=== PATIENT | male | born 1980 | race African-American/Black ===

== ENCOUNTER 2018-07-26 01:49 | Inpatient (IN) | payer MEDICAID ==
[2018-07-26 02:07] VITALS: O2SAT 98
[2018-07-26 02:59] LABS: BASO # 0.1 K/uL (0.0-0.2); BASO % 0.6 % (0.0-2.0); EOS # 0.1 K/uL (0.0-0.7); EOS % 1.5 % (0.0-4.0); HEMOGLOBIN 12.8 g/dL (12.0-18.0); LYMPH # 2.5 K/uL (1.0-4.3); LYMPH % 27.6 % (20.0-40.0); MEAN CELL VOLUME 100.8 fl (80.0-94.0); MEAN CORPUSCULAR HEMOGLOBIN 33.4 pg (27.0-31.0); MEAN CORPUSCULAR HGB CONC 33.2 g/dL (33.0-37.0); MONO # 0.9 K/uL (0.0-0.8); MONO % 10.3 % (0.0-10.0); NEUT # 5.5 K/uL (1.8-7.0); NRBC % 0.1 % (0.0-0.0); RBC 3.84 Mil/uL (4.40-5.90); RED CELL DISTRIBUTION WIDTH 13.3 % (11.5-14.5); WHITE BLOOD COUNT 9.2 K/uL (4.8-10.8)
[2018-07-26 03:01] LABS: URINE BILIRUBIN NEGATIVE (NEGATIVE); URINE BLOOD NEGATIVE (NEGATIVE); URINE CLARITY SLIGHTY-CLOUDY (Clear); URINE COLOR YELLOW (YELLOW); URINE GLUCOSE (UA) NEG (NEGATIVE); URINE LEUKOCYTE ESTERASE NEG Leu/uL (Negative); URINE PROTEIN NEGATIVE (NEGATIVE)
--- NOTE | 2018-07-26 03:08 | ED PDOC ---
HPI: Psych/Substance Abuse Time Seen by Provider: 07/26/18 02:09 Chief Complaint (Nursing): Psychiatric Evaluation Chief Complaint (Provider): Psychiatric Evaluation History Per: Patient History/Exam Limitations: no limitations Current Symptoms Are (Timing): Still Present Additional Complaint(s): 37 y/o male with a PMHx of ADHD, Bipolar Disorder, Depression, substance abuse and alcohol abuse presents to the ED for evaluation of suicidal ideation, onset one day ago. Patient notes of having a plan to hang himself. Patient reports of recently being seen at an emergency room in [place] and discharged home then subsequently being seen at [facility] and discharged home. Patient states he was just discharged from [facility] and walked here. PMD: no provider Past Medical History Reviewed: Historical Data, Nursing Documentation, Vital Signs Vital Signs: Last Vital Signs Temp 97.6 F 07/26/18 01:58 Pulse 98 H 07/26/18 01:58 Resp 16 07/26/18 01:58 BP 128/79 07/26/18 01:58 Pulse Ox 98 07/26/18 01:58 - Medical History PMH: Depression, Hepatitis (Pt said he might be positive for Hep "C") Denies: Diabetes, HIV, HTN, Chronic Kidney Disease, Seizures, Sexually Transmitted Disease - Surgical History Surgical History: No Surg Hx - Family History Family History: States: Unknown Family Hx - Living Arrangements Living Arrangements: Other (homeless) - Social History Current smoker - smoking cessation education provided: Yes Alcohol: > 2 Drinks/Day - Immunization History Hx Tetanus Toxoid Vaccination: Yes Hx Influenza Vaccination: Yes Hx Pneumococcal Vaccination: Yes - Home Medications Home Medications: Ambulatory Orders Medication Instructions Recorded Citalopram [celeXA] 10 mg PO DAILY #30 tab 09/05/15 Divalproex [Depakote DR] 500 mg PO BID #60 tcp 09/05/15 Gabapentin [Neurontin] 300 mg PO TID #90 cap 09/05/15 traZODone [Desyrel] 50 mg PO HS PRN #30 tab 09/05/15 - Allergies Allergies/Adverse Reactions: Allergies Allergy/AdvReac Type Severity Reaction Status Date / Time No Known Allergies Allergy Unverified 07/26/18 14:26 Review of Systems ROS Statement: Except As Marked, All Systems Reviewed And Found Negative Psych: Positive for: Suicidal ideation (with plan to hang himself) Physical Exam - Reviewed Nursing Documentation Reviewed: Yes Vital Signs Reviewed: Yes - Physical Exam Appears: Positive for: No Acute Distress Head Exam: Positive for: ATRAUMATIC, NORMOCEPHALIC Skin: Positive for: Normal Color, Warm, Dry Eye Exam: Positive for: Normal appearance, EOMI, PERRL Neck: Positive for: Normal, Painless ROM Cardiovascular/Chest: Positive for: Regular Rate, Rhythm. Negative for: Murmur Respiratory: Positive for: Normal Breath Sounds. Negative for: Respiratory Distress Extremity: Positive for: Normal ROM Neurological/Psych: Positive for: Awake, Alert, Oriented. Negative for: Motor/Sensory Deficits - Laboratory Results Result Diagrams: 07/26/18 02:50 07/26/18 02:50 Lab Results: Urine Color Yellow (YELLOW) 07/26/18 02:50 Urine Clarity Slighty-cloudy (Clear) 07/26/18 02:50 Urine pH 6.0 (5.0-8.0) 07/26/18 02:50 Ur Specific [place] 1.018 (1.003-1.030) 07/26/18 02:50 Urine Protein Negative mg/dL (NEGATIVE) 07/26/18 02:50 Urine Glucose (UA) Neg mg/dL (NEGATIVE) 07/26/18 02:50 Urine Ketones Negative mg/dL (NEGATIVE) 07/26/18 02:50 Urine Blood Negative (NEGATIVE) 07/26/18 02:50 Urine Nitrate Negative (NEGATIVE) 07/26/18 02:50 Urine Bilirubin Negative (NEGATIVE) 07/26/18 02:50 Urine Urobilinogen 2.0 mg/dL (0.2-1.0) 07/26/18 02:50 Ur Leukocyte Esterase Neg Lars/uL (Negative) 07/26/18 02:50 Urine RBC (Auto) 1 /hpf (0-3) 07/26/18 02:50 Urine Microscopic WBC 1 /hpf (0-5) 07/26/18 02:50 - ECG O2 Sat by Pulse Oximetry: 98 (RA) Pulse Ox Interpretation: Normal Medical Decision Making Medical Decision Making: Time: 213 Impression: 37 y/o male with a suicidal ideation Plan: -- Alcohol Serum -- CMP -- Urine Drug Screen -- Crisis Evaluation -- ED Urine Dipstick -- CBC with Differentials -- 1:1 Observation -- Accucheck -- Urinalysis Time: 313 -- Patient evaluated by crisis who state patient will be admitted with a diagnosis of depression as per Dr. Reed. Patient is medically stable for psychiatric admission. Scribe Attestation: Documented by Negin Moyer, acting as a scribe Agnes Smallwood MD. Provider Scribe Attestation: All medical record entries made by the Scribe were at my direction and personally dictated by me. I have reviewed the chart and agree that the record accurately reflects my personal performance of the history, physical exam, medical decision making, and the department course for this patient. I have also personally directed, reviewed, and agree with the discharge instructions and disposition. Disposition - Clinical Impression Clinical Impression: Depression - Patient ED Disposition Is Patient to be Admitted: Yes Counseled Patient/Family Regarding: Studies Performed, Diagnosis - Disposition Disposition Time: 03:14 Condition: FAIR
[2018-07-26 03:14] LABS: ALB/GLOB RATIO 1.5 (1.0-2.1); ALBUMIN 4.4 g/dL (3.5-5.0); ALT/SGPT 189 U/L (21-72); AST/SGOT 134 U/L (17-59); BLOOD UREA NITROGEN 16 mg/dl (9-20); CALCIUM 9.4 mg/dL (8.4-10.2); GFR NON-AFRICAN AMERICAN > 60
[2018-07-26 03:41] LABS: PHENCYCLIDINE, UR NEGATIVE (NEGATIVE)
[2018-07-26 03:45] LABS: BARBITURATES, UR NEGATIVE (NEGATIVE); BENZODIAZEPINES, UR POSITIVE (NEGATIVE); OPIATES, UR NEGATIVE (NEGATIVE)
[2018-07-26] MEDS ORDERED: Alum-Mag Hydrox-Simethicone Susp (30 mL) PO PRN (05:09)
[2018-07-26] MEDS ORDERED: Magnesium Hydroxide Susp 30 ml UD PO PRN (05:09)
[2018-07-26] MEDS ORDERED: DiphenhydrAMINE 50 mg/ml Inj IM PRN (05:09)
[2018-07-26 05:27] VITALS: RESP 18
--- NOTE | 2018-07-26 05:28 | PCM.BM ---
Treatment Plan Problems - Problems identified on initial assessmt Medication nonadherence Date Initiated: 07/26/18 Time Initiated: 05:27 Assessment reference: NA Status: Active Hopelessness/Helplessness Date Initiated: 07/26/18 Time Initiated: 05:28 Assessment reference: NA Status: Active Altered sleep Date Initiated: 07/26/18 Time Initiated: 05:29 Assessment reference: NA Status: Active Treatment assets and liabiliti Patient Assests: cooperative, ADL independent, physically healthy, negotiates basic needs, cognitively intact Patient Liabilities: poor support system, substance abuse, legal issue, other (homelessness) - Milieu Protocol Maintain good personal hygiene: daily Encourage regular showers, other Remind patient to perform daily oral care (prn), other Assist patient to perform ADL's (prn) Conduct patient checks and document Observation sheet: Q15 minutes Maintain personal safety: every shift Educate patient to report safety concerns to staff, every shift Monitor environment for contraband/sharps Medication safety: Monitor for expected outcome, potential side effects: every shift, Assess barriers to learning: every shift, Assess readiness for medication education: every shift
[2018-07-26 10:09] VITALS: BP 123/78; PULSE 92; TEMP 97.2
--- NOTE | 2018-07-26 10:46 | RAD ---
Date of service: 07/26/2018 HISTORY: Admission COMPARISON: No prior. TECHNIQUE: 1 view obtained. FINDINGS: LUNGS: No active pulmonary disease. PLEURA: No significant pleural effusion identified, no pneumothorax apparent. CARDIOVASCULAR: No aortic atherosclerotic calcification present. Normal cardiac size. No pulmonary vascular congestion. OSSEOUS STRUCTURES: No significant abnormalities. VISUALIZED UPPER ABDOMEN: Normal. OTHER FINDINGS: None. IMPRESSION: No active disease.
--- NOTE | 2018-07-26 11:41 | CP.PCM.CON ---
History of Present Illness - History of Present Illness History of Present Illness: 37 yo male with history of ADHD, Depression and alcohol Abuse admitted to psyche unit because of suicidal ideation. Review of Systems - Review of Systems All systems: reviewed and no additional remarkable complaints except (aside from those mentioned above, 12 point system review were negative by me) Past Patient History - Tetanus Immunizations Tetanus Immunization: Unknown - Past Social History Smoking Status: Heavy Smoker > 10 Cigarettes Daily Chewing Tobacco Use: No Cigar Use: No Alcohol: > 2 Drinks/Day - CARDIAC Hx Cardiac Disorders: No Hx Hypertension: No - PULMONARY Hx Tuberculosis: No - NEUROLOGICAL HX Cerebrovascular Accident: No Hx Seizures: No - HEENT Hx HEENT Problems: No - RENAL Hx Chronic Kidney Disease: No - ENDOCRINE/METABOLIC Hx Endocrine Disorders: No - HEMATOLOGICAL/ONCOLOGICAL Hx Cancer: No Hx Human Immunodeficiency Virus (HIV): No - INTEGUMENTARY Hx Dermatological Problems: Yes Other/Comment: Excoriated areas on bilateral posterior and inner thigh - MUSCULOSKELETAL/RHEUMATOLOGICAL Hx Musculoskeletal Disorders: No - GASTROINTESTINAL Hx Gastrointestinal Disorders: No - GENITOURINARY/GYNECOLOGICAL Hx Sexually Transmitted Disorders: No - PSYCHIATRIC Hx Depression: Yes Hx Substance Use: Yes (heroin use last used 1 week ago) - SURGICAL HISTORY Hx Surgeries: Yes Hx Orthopedic Surgery: Yes (Rt. ankle surgery) - ANESTHESIA Hx Anesthesia: Yes Hx Anesthesia Reactions: No Hx Malignant Hyperthermia: No Meds Allergies/Adverse Reactions: Allergies Allergy/AdvReac Type Severity Reaction Status Date / Time No Known Allergies Allergy Unverified 12/15/12 11:03 - Medications Medications: Current Medications Acetaminophen (Tylenol 325mg Tab) 650 mg PO Q4 PRN PRN Reason: pain 4-7 Al Hydrox/Mg Hydrox/Simethicone (Maalox Plus 30 Ml) 30 ml PO Q4 PRN PRN Reason: Dyspepsia Diphenhydramine HCl (Benadryl) 50 mg IM Q6 PRN PRN Reason: Extrapyramidal S/S Unable PO Diphenhydramine HCl (Benadryl) 50 mg PO Q6 PRN PRN Reason: Extrapyramidal Symptoms Diphenhydramine HCl (Benadryl) 50 mg PO HS PRN PRN Reason: Sleep Haloperidol (Haldol) 5 mg PO Q4 PRN PRN Reason: Agitation Haloperidol Lactate (Haldol) 5 mg IM Q4 PRN PRN Reason: Agitation, Unable to Take PO Lorazepam (Ativan) 2 mg IM Q6 PRN PRN Reason: Anxiety/Agitation,Unable PO Lorazepam (Ativan) 1 mg PO Q8 PRN PRN Reason: Anxiety/Agitation Last Admin: 07/26/18 09:08 Dose: 1 mg Magnesium Hydroxide (Milk Of Magnesia) 30 ml PO HS PRN PRN Reason: Constipation Physical Exam - Constitutional Appears: No Acute Distress - Head Exam Head Exam: ATRAUMATIC - Eye Exam Eye Exam: absent: Scleral icterus - ENT Exam ENT Exam: Mucous Membranes Moist - Neck Exam Neck exam: Negative for: Meningismus - Respiratory Exam Respiratory Exam: absent: Rales, Rhonchi, Wheezes, Respiratory Distress - Cardiovascular Exam Cardiovascular Exam: REGULAR RHYTHM, +S1, +S2 - GI/Abdominal Exam GI & Abdominal Exam: Soft. absent: Tenderness - Rectal Exam Rectal Exam: Deferred - Neurological Exam Neurological exam: Alert, Oriented x3 - Psychiatric Exam Psychiatric exam: Normal Affect - Skin Skin Exam: Dry, Intact Results - Vital Signs Recent Vital Signs: Last Vital Signs Temp 97.2 F L 07/26/18 09:00 Pulse 92 H 07/26/18 09:00 Resp 18 07/26/18 09:00 BP 123/78 07/26/18 09:00 Pulse Ox 98 07/26/18 03:15 - Labs Result Diagrams: 07/26/18 02:50 07/26/18 02:50 Labs: Laboratory Results - last 24 hr 07/26/18 07/26/18 07/26/18 02:50 02:50 02:50 WBC 9.2 RBC 3.84 L Hgb 12.8 Hct 38.7 MCV 100.8 H MCH 33.4 H MCHC 33.2 RDW 13.3 Plt Count 210 MPV 10.0 Neut % (Auto) 60.0 Lymph % (Auto) 27.6 [place] % (Auto) 10.3 H Eos % (Auto) 1.5 Baso % (Auto) 0.6 Neut # (Auto) 5.5 Lymph # (Auto) 2.5 [place] # (Auto) 0.9 H Eos # (Auto) 0.1 Baso # (Auto) 0.1 Sodium 145 Potassium 4.0 Chloride 108 H Carbon Dioxide 29 Anion Gap 12 BUN 16 Creatinine 1.0 Est GFR ( Amer) > 60 Est GFR (Non-Af Amer) > 60 POC Glucose (mg/dL) Random Glucose 80 Calcium 9.4 Total Bilirubin 0.6 AST 134 H ALT 189 H Alkaline Phosphatase 75 Total Protein 7.4 Albumin 4.4 Globulin 2.9 Albumin/Globulin Ratio 1.5 Urine Color Urine Clarity Urine pH Ur Specific [place] Urine Protein Urine Glucose (UA) Urine Ketones Urine Blood Urine Nitrate Urine Bilirubin Urine Urobilinogen Ur Leukocyte Esterase Urine RBC (Auto) Urine Microscopic WBC Urine Opiates Screen Negative Urine Methadone Screen Negative Ur Barbiturates Screen Negative Ur Phencyclidine Scrn Negative Ur Amphetamines Screen Negative U Benzodiazepines Scrn Positive U Oth Cocaine Metabols Negative U Cannabinoids Screen Negative Alcohol, Quantitative < 10 07/26/18 07/26/18 02:50 02:50 WBC RBC Hgb Hct MCV MCH MCHC RDW Plt Count MPV Neut % (Auto) Lymph % (Auto) [place] % (Auto) Eos % (Auto) Baso % (Auto) Neut # (Auto) Lymph # (Auto) [place] # (Auto) Eos # (Auto) Baso # (Auto) Sodium Potassium Chloride Carbon Dioxide Anion Gap BUN Creatinine Est GFR ( Amer) Est GFR (Non-Af Amer) POC Glucose (mg/dL) 80 Random Glucose Calcium Total Bilirubin AST ALT Alkaline Phosphatase Total Protein Albumin Globulin Albumin/Globulin Ratio Urine Color Yellow Urine Clarity Slighty-cloudy Urine pH 6.0 Ur Specific [place] 1.018 Urine Protein Negative Urine Glucose (UA) Neg Urine Ketones Negative Urine Blood Negative Urine Nitrate Negative Urine Bilirubin Negative Urine Urobilinogen 2.0 Ur Leukocyte Esterase Neg Urine RBC (Auto) 1 Urine Microscopic WBC 1 Urine Opiates Screen Urine Methadone Screen Ur Barbiturates Screen Ur Phencyclidine Scrn Ur Amphetamines Screen U Benzodiazepines Scrn U Oth Cocaine Metabols U Cannabinoids Screen Alcohol, Quantitative Assessment & Plan (1) Suicidal ideation Status: Acute Comment: psyche is managing
--- NOTE | 2018-07-26 13:31 | PCM.PSYCH ---
Initial Psychiatric Evaluation - Initial Psychiatric Evaluation Chief Complaint (in patient's own words): i came to the hospital because i needed to get my adderall and clonazepam-i said i was suicidal because I knew that was the way to get admitted. I was [facility] at the emergency room-i said i was suicidal to get my medicines but they discharged me. Patient's Reaction to Hospitalization: initally signed in voluntarily subsequently submitted 48 hr notice History of Present Illness and Precipitating Events: as noted above. pt was on unit. stated that he had not taken his adderall in over a month as well has not received klonopin in over two weeks. pt became upset on unit was noted to be yelling, demanding to have his adderall. was explained that adderall/adhd medications if not taken in over a month, could and should be evaluated on an opd basis-attempted to explain offer pt possible buproprion-pt defers, pt received one dose lorazepam prn but defers further lorazepam demands clonazepam, offered pt explanation that prn use of hydroxyzine pamoate could be used pt defers saying that "sh-t does not work". pt a one was noted to be in dining room yelling using profanitities stating that "if i dont get what i want i want to get the fu-k out". pt defers any and all suicidal ideations. pt deferred any and all hallucinations. pt denied any and all will will towards others. pt clearly stated that he only stated that he was suicidal the er to get admitted. pt denied any and all pain. Current Medications: Active Medications Generic Name Dose Route Start Last Admin Trade Name Freq PRN Reason Stop Dose Admin Acetaminophen 650 mg 07/26/18 05:09 Tylenol 325mg Tab PO Q4 PRN pain 4-7 Al Hydrox/Mg Hydrox/Simethicone 30 ml 07/26/18 05:09 Maalox Plus 30 Ml PO Q4 PRN Dyspepsia Diphenhydramine HCl 50 mg 07/26/18 05:09 Benadryl IM Q6 PRN Extrapyramidal S/S Unable PO Diphenhydramine HCl 50 mg 07/26/18 05:09 Benadryl PO Q6 PRN Extrapyramidal Symptoms Diphenhydramine HCl 50 mg 07/26/18 05:09 Benadryl PO HS PRN Sleep Haloperidol 5 mg 07/26/18 05:09 Haldol PO Q4 PRN Agitation Haloperidol Lactate 5 mg 07/26/18 05:09 Haldol IM Q4 PRN Agitation, Unable to Take PO Lorazepam 2 mg 07/26/18 05:09 Ativan IM Q6 PRN Anxiety/Agitation,Unable PO Lorazepam 1 mg 07/26/18 05:09 07/26/18 09:08 Ativan PO 1 mg Q8 PRN Administration Anxiety/Agitation Magnesium Hydroxide 30 ml 07/26/18 05:09 Milk Of Magnesia PO HS PRN Constipation Past Psychiatric History - Past Psychiatric History Prior Professional Help: defers giving detail Prior [place]iatric [place] [facility] [place] similarc/o History of Abuse: defers History of ETOH/Drug Use: i dont have a "[facility] drug problem i just need my meds" History of Family Illness: defers Pertinent Medical Hx (Current Medical&Sleep Prob, Allergies): Allergies Allergy/AdvReac Type Severity Reaction Status Date / Time No Known Allergies Allergy Unverified 12/15/12 11:03 Citalopram [celeXA] 10 mg PO DAILY #30 tab 09/05/15 Divalproex [Depakote DR] 500 mg PO BID #60 tcp 09/05/15 Gabapentin [Neurontin] 300 mg PO TID #90 cap 09/05/15 traZODone [Desyrel] 50 mg PO HS PRN #30 tab 09/05/15 Review of Systems - Psychiatric Additional comments: i need by "[facility] meds i have trouble concentrating " defers detail when statues that has not taking meds in over a month Mental Status Examination - Personal Presentation Personal Presentation: Looks stated age - Affect Additional comments: irritable at times but is easily redirected to calmi - Motor Activity Motor Activity: Psychomotor Agitation Additional comments: at times but then easily redirected - Speech Speech: Organized - Mood Additional comments: mood appears to vary from agitation and then easily directed to calm-when explained status concerns pt stated clearly only stated was suicidal to get admt emy to that he might get adderall and clonazpam - Formal Thought Process Formal Thought Process: No Impairment - Obsessions/Compulsions Obsessions: No Compulsions: No - Cognitive Functions Orientation: Person, Place, Situation, Time Sensorium: Alert Judgement: Imparied, as evidence by: Other - Risk Risk: Other - Strength & Assets Inventory Strength & Assets Inventory: Intelligence Additional comments: initially signed in but then subsequently submitted a 48 hour notice - Limitations Additional comments: non follow up appears to attempt various er adm in attempt to obtain adderall and clonazepam admits this related to this adm [place] [facility] [place] to admssion DSM 5 DX - DSM 5 DSM 5 Diagnosis: depression noswith stated suicidal ideation (without plan) polysubtance use by hx-clonazpeam utox positive for benzodizepine hx of reported amphetamine use-utox was negative for amphetamines - Recommended/Plan of Treatment Treatment Recommendations and Plan of Treatment: inpt adm per attending vital signs and clinical observation per protocol and per clinical status prns per unit protocol hospitalist consult discharge planning in progress Projected ELOS: 1-2 days Prognosis: guarded Discharge Plan and Discharge Criteria: safety - Smoking Cessation Smoking Cessation Initiated: No Reason for not providing: deferred
--- NOTE | 2018-07-26 14:01 | PCM.PYCHDC ---
Mental Status Examination - Mental Status Examination Orientation: Person, Place, Situation, Time Memory: Intact Mood: Neutral Affect: Broad Speech: Loud, Soft Attention: WNL Concentration: WNL Association: WNL Fund of Knowledge: WNL Formal Thought Process: No Impairment, Circumstantial Description of patient's judgement and insight: pt initially was loud using profanities, was able to tolerate explanation of proposed treatment plan, pt deferred had submitted a 48 hour notice,deferred recinding, pt expressly admitted to not having suicidal ideations, used the c/o of suicidal ideations to gain adm. to try to obtain adderall and clonazepam, deferred any desire to harm self or others. security was present pt was explained ama form as pt deferred recinding 48 hour notice-pt did not appear to meed screenin criteria-was labile but redirectable, stated that the c/o suicidal ideations was used to gain adm to attempt to obtain 2nd gain of adderall (which was reportedly last taken 30 days ago and utox was negative for amphetamines), pt was read ama form and it was signed by pt and witnessed by this short story writer (copy to chart). pt was calm, stated that understood that medications could not be prescribed as he wanted but "we had to do what we thought was right". pt shook this short story writer's hand, stated "thank you for explaining things to me". was explained to pt that should emergent care be necessary pt can present to er/call 911. review with pt dangers of possibly attending medications from alternative sources other than prescribed form. pt was escorted off of unit with security without incident. Psychotic Thoughts and Behaviors: denied Suicidal Ideation: No Current Homicidal Ideation?: No Plan: denies any ill will Discharge Summary - Discharge Note Reason for Hospitalization: initally signed in voluntarily subsequently submitted 48 hr notice Psychiatric History (includes Medical, Family, Personal Hx): see as noted earlier reported opd without detail various er visits Laboratory Data: Abnormal Lab Results 07/26/18 07/26/18 07/26/18 02:50 02:50 02:50 WBC 9.2 RBC 3.84 L Hgb 12.8 Hct 38.7 MCV 100.8 H MCH 33.4 H MCHC 33.2 RDW 13.3 Plt Count 210 MPV 10.0 Neut % (Auto) 60.0 Lymph % (Auto) 27.6 Schleicher % (Auto) 10.3 H Eos % (Auto) 1.5 Baso % (Auto) 0.6 Neut # (Auto) 5.5 Lymph # (Auto) 2.5 Schleicher # (Auto) 0.9 H Eos # (Auto) 0.1 Baso # (Auto) 0.1 Sodium 145 Potassium 4.0 Chloride 108 H Carbon Dioxide 29 Anion Gap 12 BUN 16 Creatinine 1.0 Est GFR ( Amer) > 60 Est GFR (Non-Af Amer) > 60 POC Glucose (mg/dL) Random Glucose 80 Calcium 9.4 Total Bilirubin 0.6 AST 134 H ALT 189 H Alkaline Phosphatase 75 Total Protein 7.4 Albumin 4.4 Globulin 2.9 Albumin/Globulin Ratio 1.5 Urine Color Urine Clarity Urine pH Ur Specific Bo[place] Urine Protein Urine Glucose (UA) Urine Ketones Urine Blood Urine Nitrate Urine Bilirubin Urine Urobilinogen Ur Leukocyte Esterase Urine RBC (Auto) Urine Microscopic WBC Urine Opiates Screen Negative Urine Methadone Screen Negative Ur Barbiturates Screen Negative Ur Phencyclidine Scrn Negative Ur Amphetamines Screen Negative U Benzodiazepines Scrn Positive U Oth Cocaine Metabols Negative U Cannabinoids Screen Negative Alcohol, Quantitative < 10 07/26/18 07/26/18 02:50 02:50 WBC RBC Hgb Hct MCV MCH MCHC RDW Plt Count MPV Neut % (Auto) Lymph % (Auto) Schleicher % (Auto) Eos % (Auto) Baso % (Auto) Neut # (Auto) Lymph # (Auto) Schleicher # (Auto) Eos # (Auto) Baso # (Auto) Sodium Potassium Chloride Carbon Dioxide Anion Gap BUN Creatinine Est GFR ( Amer) Est GFR (Non-Af Amer) POC Glucose (mg/dL) 80 Random Glucose Calcium Total Bilirubin AST ALT Alkaline Phosphatase Total Protein Albumin Globulin Albumin/Globulin Ratio Urine Color Yellow Urine Clarity Slighty-cloudy Urine pH 6.0 Ur Specific [place] 1.018 Urine Protein Negative Urine Glucose (UA) Neg Urine Ketones Negative Urine Blood Negative Urine Nitrate Negative Urine Bilirubin Negative Urine Urobilinogen 2.0 Ur Leukocyte Esterase Neg Urine RBC (Auto) 1 Urine Microscopic WBC 1 Urine Opiates Screen Urine Methadone Screen Ur Barbiturates Screen Ur Phencyclidine Scrn Ur Amphetamines Screen U Benzodiazepines Scrn U Oth Cocaine Metabols U Cannabinoids Screen Alcohol, Quantitative Consultations:: List each consultation separately and include: 1. Reason for request. 2. Findings. 3. Follow-up Consultations: pt was seen by hospitalist Summary of Hospital Course include:: 1. Description of specific treatment plan utilized for patients during their course of treatmen. 2. Summarize the time- course for resolution of acute symptoms and/or regressed behaviors. 3. Describe issues identified and worked on during hospitalization. 4. Describe medication utilized. 5. Describe medical problems identified and treated. 6. Reassessment of suicide risk Summary of Hospital Course: pt initially was loud using profanities, was able to tolerate explanation of proposed treatment plan, pt deferred had submitted a 48 hour notice,deferred recinding, pt expressly admitted to not having suicidal ideations, used the c/o of suicidal ideations to gain adm. to try to obtain adderall and clonazepam, deferred any desire to harm self or others. security was present pt was explained ama form as pt deferred recinding 48 hour notice-pt did not appear to meed screenin criteria-was labile but redirectable, stated that the c/o suicidal ideations was used to gain adm to attempt to obtain 2nd gain of adderall (which was reportedly last taken 30 days ago and utox was negative for amphetamines), pt was read ama form and it was signed by pt and witnessed by this short story writer (copy to chart). pt was calm, stated that understood that medications could not be prescribed as he wanted but "we had to do what we thought was right". pt shook this short story writer's hand, stated "thank you for explaining things to me". was explained to pt that should emergent care be necessary pt can present to er/call 911. review with pt dangers of possibly attending medications from alternative sources other than prescribed form. pt was escorted off of unit with security without incident. as noted above. pt was on unit. stated that he had not taken his adderall in over a month as well has not received klonopin in over two weeks. pt became upset on unit was noted to be yelling, demanding to have his adderall. was explained that adderall/adhd medications if not taken in over a month, could and should be evaluated on an opd basis-attempted to explain offer pt possible buproprion-pt defers, pt received one dose lorazepam prn but defers further lorazepam demands clonazepam, offered pt explanation that prn use of hydroxyzine pamoate could be used pt defers saying that "sh-t does not work". pt a one was noted to be in dining room yelling using profanitities stating that "if i dont get what i want i want to get the fu-k out". pt defers any and all suicidal ideations. pt deferred any and all hallucinations. pt denied any and all will will towards others. pt clearly stated that he only stated that he was suicidal the er to get admitted. pt denied any and all pain. pt was evaluated by this short story writer, pt did not appear to meet screening criteria, pt was offered option to recind 48hr notice and remain and alternative sources of treatment would be pursued pt deferred and requested to be discharged and that he would pursue follow up care "[facility] where he is from". pt was calm, apologetic and was escorted off of unit without incident. 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 Comment: utox negative - Final Diagnosis (DSM 5) Condition upon Discharge: FAIR Disposition: HOME/ ROUTINE Follow-up Treatment Plan: pt signed out ama after submitted a 48 hour notice and deferring to rescind pt admitted that he only stated he had suicidal ideations to gain admission to attempt to get adderall and clonazpeam denied any and all ill will towards others and self pt did not appear to meet screening criteria pt was explaned ama -signed and pt was discharged ama per attending physician - Smoking Cessation Smoking Cessation Medication prescribed: No - Antipsychotic Medications Pt discharged on 2 or more routine antipsychotic medications: No
--- NOTE | 2018-07-26 16:34 | CARD ---
APPROVED REPORT Date of service: 07/26/2018 EKG Measurement Heart [id number] <Conclusion> Normal sinus rhythm Normal Electrocardiogram
--- NOTE | 2018-07-26 16:38 | PCM.PYCHPN ---
Psychiatric Progress Note - Psychiatric Progress Note Patient seen today, length of contact: called to see pt in emergency room after pt reported presented after an Patient Chief Complaint: left ama 3np presented to er stating that he needed percocet and pot along with adderall and clonozepam. reviewed with pt that recently as of today had signed out ama, pt stated that "what do you think that I will not go out side and kill myself". reviewed with pt that these statments are taken seriously. pt states that if he does not obtain his medications would hurt himself. later pt states cant you just give me some scripts and I can go". defers recanting statement that he would harm himself if he were discharged. reviewed with pt that [facility] screener would be called. Problems Identified/Issues Discussed: alteration in coping drug dependence" amphetamines benzodiazepien" alteration in domicile Medical Problems: per chart Diagnostic Results: per psychiatry per medicine/er DSM 5 Symptoms Update: substance abuse subtance use amphetamine/benzodizepien hx of suicidal ideation/possible personality disorder ?borderline /antisocial traits \\reported hx of adhd non adherence with medical treament Medication Change: No Medical Record Reviewed: Yes Consults ordered or reviewed: pt presented to er/triage Mental Status Examination - Cognitive Function Orientation: Person, Place, Situation, Time Memory: Intact Attention: WNL Concentration: WNL Association: WNL Fund of Knowledge: [facility] Decription of patient's judgement and insights: impaired /?manipulative from todays admission and discharge ama pt initially was loud using profanities, was able to tolerate explanation of proposed treatment plan, pt deferred had submitted a 48 hour notice,deferred recinding, pt expressly admitted to not having suicidal ideations, used the c/o of suicidal ideations to gain adm. to try to obtain adderall and clonazepam, deferred any desire to harm self or others. security was present pt was explained ama form as pt deferred recinding 48 hour notice-pt did not appear to meed screenin criteria-was labile but redirectable, stated that the c/o suicidal ideations was used to gain adm to attempt to obtain 2nd gain of adderall (which was reportedly last taken 30 days ago and utox was negative for amphetamines), pt was read ama form and it was signed by pt and witnessed by this database report writer (copy to chart). pt was calm, stated that understood that medications could not be prescribed as he wanted but "we had to do what we thought was right". pt shook this database report writer's hand, stated "thank you for explaining things to me". was explained to pt that should emergent care be necessary pt can present to er/call 911. review with pt dangers of possibly attending medications from alternative sources other than prescribed form. pt was escorted off of unit with security without incident. - Mood Mood: Neutral - Affect Affect: Broad - Speech Speech: Loud, Soft - Formal Thought Process Formal Thought Process: No Impairment, Circumstantial Psychotic Thoughts and Behaviors: denied - Suicidal Ideation Suicidal Ideation: No - Homicidal Ideation Homicidal Ideation: No Goal/Treatment Plan - Goal/Treatment Plan Progress Toward Problem(s) and Goals/Treatment Plan: pt is to be screened by [facility] for possible involuntary commitment. pt cannot contract for safety. reports unless amphetamines and benzodiazepine received. please admitted and discharge note of today (ama). reportedly stated would try to jumb from a building but reported to team was afraid of heights reports that in past tried to hang self but does not give team details reports that in past primary md prescribed gabapentin 900mg po day, wellbutrin 300mg po bid, and unkown dose of topamax reports that psychiatrist of ? name in [employer] [facility] prescribed adderall but has not been seen or taken in over one month If changed, why: pt to be screened for possible involuntary adm/ - Smoking Cessation Smoking Cessation Initiated: No
== END 2018-07-26 12:34 | disposition home or self-care (01) | DRG 426 ==
LOC: H.ER 01:49 → H.ERHOLD 03:13 → H.PSYCH 05:04
PROVIDERS: ADMIT Psychiatry & Neurology Psychiatry; ATTEND Psychiatry & Neurology Psychiatry
DX: F32.9 Major depressive disorder, single episode, unspecified (principal); F90.9 Attention-deficit hyperactivity disorder, unspecified type; Z59.0 Homelessness; F17.210 Nicotine dependence, cigarettes, uncomplicated; Z91.19 Patient's noncompliance with other medical treatment and regimen; F19.90 Other psychoactive substance use, unspecified, uncomplicated

== ENCOUNTER 2018-07-26 14:00 | Emergency (ER) | payer MEDICAID ==
--- NOTE | 2018-07-26 14:39 | ED PDOC ---
HPI: Psych/Substance Abuse Time Seen by Provider: 07/26/18 14:30 Chief Complaint (Nursing): Psychiatric Evaluation Chief Complaint (Provider): Psychiatric Evaluation History Per: Patient History/Exam Limitations: no limitations Additional Complaint(s): 37 year old male with past history of bipolar disorder, depression, and ADHD, presents to the emergency department for evaluation of depression and suicidal ideation. Patient will not elaborate on a plan at this time. Patient reports last suicide attempt was in 2002. Additionally, he admits he was discharged this morning from inpatient psych unit and presents requesting admission. History limited as patient is not cooperative with questioning. Otherwise: (-) physical complaints. Denies A/V HI, hallucinations. PCP: MAXIMILIANO Garza Past Medical History Reviewed: Historical Data, Nursing Documentation, Vital Signs Vital Signs: Last Vital Signs Temp 97 F L 07/26/18 14:27 Pulse 93 H 07/26/18 14:27 Resp 16 07/26/18 14:27 BP 126/81 07/26/18 14:27 Pulse Ox 97 07/26/18 14:27 - Medical History PMH: Bipolar Disorder, Depression, Chronic Pain Other PMH: ADHD - Surgical History Other surgeries: right ankle ORIF - Family History Family History: States: Unknown Family Hx - Social History Alcohol: Occasional Drugs: Cannabis - Home Medications Home Medications: Ambulatory Orders Medication Instructions Recorded Citalopram [celeXA] 10 mg PO DAILY #30 tab 09/05/15 Divalproex [Depakote DR] 500 mg PO BID #60 tcp 09/05/15 Gabapentin [Neurontin] 300 mg PO TID #90 cap 09/05/15 traZODone [Desyrel] 50 mg PO HS PRN #30 tab 09/05/15 - Allergies Allergies/Adverse Reactions: Allergies Allergy/AdvReac Type Severity Reaction Status Date / Time No Known Allergies Allergy Unverified 07/26/18 14:26 Review of Systems ROS Statement: Except As Marked, All Systems Reviewed And Found Negative Gastrointestinal: Negative for: Abdominal Pain Musculoskeletal: Negative for: Arm Pain, Leg Pain Neurological: Negative for: Headache Psych: Positive for: Depression, Suicidal ideation Physical Exam - Reviewed Nursing Documentation Reviewed: Yes Vital Signs Reviewed: Yes - Physical Exam Comments: GENERAL APPEARANCE: Patient is awake, alert, oriented x 3, in no acute distress. Resting comfortably in stretcher. SKIN: Warm, dry; (-) cyanosis HEART AND CARDIOVASCULAR: (-) irregularity CHEST AND RESPIRATORY: (-) rales, (-) rhonchi, (-) wheezes; breath sounds equal. Respirations even and nonlabored. NECK: Supple, FROM ENT: Mucus membranes moist. Airway patent, (-) stridor. NEURO AND PSYCH: Mental status as above. Gait: steady. Speech: clear. (-) facial asymmetry - ECG O2 Sat by Pulse Oximetry: 97 (RA) Pulse Ox Interpretation: Normal Medical Decision Making Medical Decision Making: Initial Impression: psychiatric evaluation Initial Plan: * Crisis evaluation * re-evaluation * 1:1 observation Time: 1430 --As per foundry worker general, Wade, patient will be additionally evaluated in ED by Galen Lay NP. 1630 Galen Lay DIAMOND CLEANER at bedside. 165 Per crisis evaluation, patient to be screened by [facility]. Patient is medically stable for further psychiatric evaluation and/or admission. 1800 Patient is sleeping comfortably on re-evaluation. 1914 Patient remains asleep in ED. No distress noted. 2039 Per [facility] screening and Galen Lay DIAMOND CLEANER, patient to be discharged with the diagnosis of substance induced mood disorder. On re-evaluation, patient offers no complaints. On exam, patient remains AAOx3, in no acute distress. Vitals stable. Lab/Diagnostic results d/w the patient in great detail. Diagnosis of substance induced mood disorder d/w the patient. Based on history, exam and diagnostic results, plan will be for outpatient follow up as arranged by [facility] [place]. Patient instructed to follow-up with pmd / referral provided / the clinic in 1- 2 days without fail. Return to the emergency room at any time for any new or worsening symptoms. Patient states he fully agrees with and understands discharge instructions. States that he agrees with the plan and disposition. Verbalized and repeated discharge instructions and plan. I have given the patient opportunity to ask any additional questions. Scribe Attestation: Documented by Gisella Tan, acting as a scribe for Quita Alford PA-C. Provider Scribe Attestation: All medical record entries made by the Scribe were at my direction and personally dictated by me. I have reviewed the chart and agree that the record accurately reflects my personal performance of the history, physical exam, medical decision making, and the department course for this patient. I have also personally directed, reviewed, and agree with the discharge instructions and disposition. Disposition - Clinical Impression Clinical Impression: Substance induced mood disorder - Patient ED Disposition Is Patient to be Admitted: No Counseled Patient/Family Regarding: Studies Performed, Diagnosis, Need For Followup - Disposition Referrals: [facility] [Outside] Disposition: Routine/Home Disposition Time: 20:40 Condition: FAIR Additional Instructions: [address] [phone] FRIDAY-FRIDAY: 9AM-8PM FRIDAY AND FRIDAY: 10AM-6PM WALK-[facility] The emergency medical care you received today was directed at your acute symptoms. If you were prescribed any medication, please fill it and take as directed. It may take several days for your symptoms to resolve. Return to the Emergency Department if your symptoms worsen, do not improve, or if you have any other problems. Please contact your doctor in 2 days for re-evaluation and follow up / or call one of the physicians/clinics you have been referred to that are listed on the Patient Visit Information form that is included in your discharge packet. Bring any paperwork you were given at discharge with you along with any medications you are taking to your follow up visit. Our treatment cannot replace ongoing medical care by a primary care provider (PCP) outside of the emergency department. Instructions: Drug Abuse and Drug Addiction (DC), Drug Abuse Treatment Forms: Tangled (Honduran) Print Language: BAHRAINI - POA Present On Arrival: None
[2018-07-26 21:09] VITALS: RESP 18
[2018-07-26 21:20] VITALS: BP 103/72; PULSE 81; TEMP 98.5; O2SAT 99
== END 2018-07-26 21:19 | disposition home or self-care (01) ==
LOC: H.ER 14:00
DX: F19.94 Other psychoactive substance use, unspecified with psychoactive substance-induced mood disorder (principal); F31.9 Bipolar disorder, unspecified; F90.9 Attention-deficit hyperactivity disorder, unspecified type